=== PATIENT | male | born 1955 | race Caucasian/White ===

== ENCOUNTER 2018-06-05 14:23 | Inpatient (IN) | payer SELFPAY ==
[~2018-06-05] VITALS: Ht 165.1 cm; Wt 68.5 kg
[~2018-06-05 14:23] MED LIST: AMLO10TA80 PO; ASPI-1158 PO; CHLO25TA27 PO; CLOP75TA33 PO; LOSA25TA12 PO; MECL-109 PO; POTA10TA15 PO; PRAV20TA57 PO
[2018-06-05] MEDS ORDERED: CARV6.2548 MT (16:00)
[2018-06-05] MEDS ORDERED: VALS160T28 MT (16:00)
[2018-06-05] MEDS ORDERED: LACO200T2 MT (16:00)
[2018-06-05] MEDS ORDERED: LACO50TA2 MT (16:00)
[2018-06-05 16:08] LABS: BASOPHILS % 0.6 % (0.0-2.0); EOSINOPHILS % 3.4 % (0.0-5.0); HEMATOCRIT. 44.6 % (42.0-52.0); HEMOGLOBIN. 15.5 g/dL (14.0-18.0); LYMPHOCYTES % 26.9 % (20.0-50.0); MEAN CORPUSCULAR HEMOGLOBIN 32.6 pg (28.0-32.0); MEAN CORPUSCULAR VOLUME 94.1 fL (80.0-94.0); MEAN PLATELET VOLUME 8.1 fl (7.4-10.4); MONOCYTES % 4.2 % (2.0-8.0); NEUTROPHILS % 64.9 % (40.0-76.0); PLATELET 240 x1000/uL (130-400); RED BLOOD CELL COUNT 4.74 mill/uL (4.7-6.1); RED CELL DISTRIBUTION WIDTH 12.9 % (11.6-14.6)
[2018-06-05 16:10] LABS: CHLORIDE 110 mEq/L (98-107)
[2018-06-05 16:14] LABS: ETHANOL BLOOD < 10 mg/dL
[2018-06-05 16:17] LABS: LDL CHOLESTEROL 119 mg/dL (5-100)
[2018-06-05 16:18] LABS: INR 1.1
[2018-06-05] MEDS ORDERED: LABETALOL 5MG/ML SYR 20 MG/4 ML SYRINGE IV NR (17:30)
[2018-06-05] MEDS ORDERED: IOHEXOL-350 100 ML BOTTLE ONE (17:33)
[2018-06-05 17:42] LABS: CLARITY URINE CLEAR (CLEAR); COLOR URINE YELLOW (YELLOW); KETONES URINE NEGATIVE (NEGATIVE); LEUKOCYTE ESTERASE URINE NEGATIVE (NEGATIVE); NITRITE URINE NEGATIVE (NEGATIVE); OCCULT BLOOD URINE NEGATIVE (NEGATIVE); PROTEIN URINE NEGATIVE (NEGATIVE); SPECIFIC GRAVITY URINE 1.006 (1.005-1.030); UROBILINOGEN URINE 0.2 E.U./dL (0.2-1.0)
[2018-06-05 17:53] LABS: *AMPHETAMINES SCREEN URINE NEGATIVE (NEGATIVE); *BARBITURATES SCREEN URINE NEGATIVE (NEGATIVE)
[2018-06-05 17:54] LABS: *BENZODIAZEPINES SCREEN URINE NEGATIVE (NEGATIVE); *COCAINE SCREEN URINE NEGATIVE (NEGATIVE); CANNABINOID URINE SCREEN NEGATIVE (NEGATIVE); METHADONE URINE SCREEN NEGATIVE (NEGATIVE); OPIATES URINE SCREEN NEGATIVE (NEGATIVE); PHENCYCLIDINE URINE SCREEN NEGATIVE (NEGATIVE)
[2018-06-05 18:47] VITALS: BP 137/72
[2018-06-05 18:50] VITALS: BP 137/72
[2018-06-05] MEDS ORDERED: MEDICATION NOT ON FORMULARY EA (Clopidogrel Bisulfate (Clopidogrel) 1 TAB) PO SCH (20:15)
[2018-06-05] MEDS ORDERED: LACOSAMIDE MT SCH ×2 (20:15)
[2018-06-05] MEDS ORDERED: ONDANSETRON HCL 4MG/2ML INJ IV PRN (20:15)
[2018-06-05] MEDS ORDERED: HYDROCODONE/ACETAMINOPHEN 5/325MG TABLET PO PRN (20:15)
[2018-06-05] MEDS ORDERED: ACETAMINOPHEN 325MG TABLET PO PRN (20:15)
[2018-06-05 20:30] VITALS: BP 141/76
[2018-06-05] MEDS ORDERED: PRAVASTATIN SODIUM PO SCH (21:00)
[2018-06-05] MEDS: ATORVASTATIN CALCIUM 10MG TABLET PO SCH (21:00)
[2018-06-06 00:01] VITALS: BP 115/49
[2018-06-06 04:00] VITALS: BP 131/69
[2018-06-06 08:00] VITALS: BP 114/71
[2018-06-06] MEDS: ENOXAPARIN 40MG/0.4ML SYR SUBCUT SCH (08:50)
[2018-06-06] MEDS: CLOPIDOGREL 75MG TABLET PO SCH (08:50)
[2018-06-06] MEDS: ASPIRIN 81MG TABLET PO SCH (08:51)
[2018-06-06] MEDS: MECLIZINE 25MG TABLET PO SCH ×2 (08:51→17:47)
[2018-06-06] MEDS: POTASSIUM CHLORIDE 10MEQ TABLET SR PO SCH (08:51)
[2018-06-06] MEDS: CARVEDILOL 6.25 MG TABLET PO SCH ×2 (08:52→17:49)
[2018-06-06] MEDS: AMLODIPINE 10MG TABLET PO SCH (08:53)
[2018-06-06] MEDS: LOSARTAN POTASSIUM 25 MG TABLET PO SCH (08:53)
[2018-06-06] MEDS ORDERED: MECLIZINE HCL PO SCH (09:00)
[2018-06-06] MEDS ORDERED: MEDICATION NOT ON FORMULARY EA (Potassium Chloride 1 TAB) PO SCH (09:00)
[2018-06-06] MEDS ORDERED: MEDICATION NOT ON FORMULARY EA (Losartan Potassium 25 MG) PO SCH (09:00)
[2018-06-06] MEDS ORDERED: MEDICATION NOT ON FORMULARY EA (Aspirin (Aspirin Ec) 81 MG) PO SCH (09:00)
[2018-06-06] MEDS ORDERED: MEDICATION NOT ON FORMULARY EA (Meclizine Hcl 25 MG) PO SCH (09:00)
[2018-06-06 12:00] VITALS: BP 115/50
[2018-06-06 13:15] LABS: T4 FREE 0.9 ng/dL (0.76-1.46)
[2018-06-06 13:25] LABS: FOLIC ACID (FOLATE) SERUM 17.1 ng/mL (>5.38)
[2018-06-06 16:25] VITALS: BP 125/70
[2018-06-06] MEDS: VIMPAT 50 MG PO SCH (17:49)
[2018-06-06] MEDS: VIMPAT 200MG TABLET PO SCH (17:49)
[2018-06-06 20:00] VITALS: BP 113/55
[2018-06-06] MEDS: ATORVASTATIN CALCIUM 10MG TABLET PO SCH (20:52)
[2018-06-07 00:05] VITALS: BP 124/56
[2018-06-07 04:00] VITALS: BP 120/59
[2018-06-07 08:00] VITALS: BP 118/66
[2018-06-07] MEDS: VIMPAT 200MG TABLET PO SCH (08:45)
[2018-06-07] MEDS: VIMPAT 50 MG PO SCH (08:45)
[2018-06-07] MEDS: POTASSIUM CHLORIDE 10MEQ TABLET SR PO SCH (08:49)
[2018-06-07] MEDS: CLOPIDOGREL 75MG TABLET PO SCH (08:49)
[2018-06-07] MEDS: ASPIRIN 81MG TABLET PO SCH (08:49)
[2018-06-07] MEDS: AMLODIPINE 10MG TABLET PO SCH (08:50)
[2018-06-07] MEDS: LOSARTAN POTASSIUM 25 MG TABLET PO SCH (08:53)
[2018-06-07] MEDS: CARVEDILOL 6.25 MG TABLET PO SCH (08:53)
[2018-06-07] MEDS: ENOXAPARIN 40MG/0.4ML SYR SUBCUT SCH (08:54)
[2018-06-07] MEDS: MECLIZINE 25MG TABLET PO SCH (09:05)
[2018-06-07 13:59] VITALS: BP 118/66
[2018-06-07 14:17] VITALS: BP 125/68
== END 2018-06-07 15:47 | disposition home or self-care (01) | DRG 47 ==
LOC: ER 15:40 → 7WST 16:26 → ENRESERV 17:05
PROVIDERS: ADMIT Internal Medicine; ATTEND Internal Medicine
DX: G45.9 Transient cerebral ischemic attack, unspecified (principal); E78.00 Pure hypercholesterolemia, unspecified; E78.5 Hyperlipidemia, unspecified; G40.909 Epilepsy, unspecified, not intractable, without status epilepticus; I10 Essential (primary) hypertension; I25.10 Atherosclerotic heart disease of native coronary artery without angina pectoris; Z95.5 Presence of coronary angioplasty implant and graft; Z85.841 Personal history of malignant neoplasm of brain; Z79.899 Other long term (current) drug therapy; Z79.82 Long term (current) use of aspirin
CPT/HCPCS: 36415; 70496; 70498; 70551; 71045; 80061; 80305; 82607; 82746; 82962; 83036; 83721; 84439; 84443; 84481; 84484; 93005; 93306; 99291; J1650; J8597; Q9967

== ENCOUNTER 2019-03-31 14:13 | Inpatient (IN) | payer MEDICAID, OTHER ==
[~2019-03-31] VITALS: Ht 172.7 cm; Wt 71.7 kg
[~2019-03-31 14:13] MED LIST changes: +CARV6.2548 MT; -CHLO25TA27 PO; +LACO200T2 MT; +LACO50TA2 MT; -LOSA25TA12 PO; +LOSA25TA26 PO; +VALS160T28 MT
[2019-03-31] MEDS ORDERED: ACETAMINOPHEN 325MG TABLET PO STA (14:57)
[2019-03-31] MEDS ORDERED: SODIUM CHLORIDE 0.9% 1000ML BAG (SEPSIS BOLUS) IV ONE (15:00)
[2019-03-31 15:32] LABS: BASOPHILS % 0.2 % (0.0-2.0); EOSINOPHILS % 0.1 % (0.0-5.0); HEMATOCRIT. 25.2 % (42.0-52.0); HEMOGLOBIN. 8.7 g/dL (14.0-18.0); LYMPHOCYTES % 10.8 % (20.0-50.0); MEAN CORPUSCULAR HEMOGLOBIN 32.5 pg (28.0-32.0); MEAN CORPUSCULAR VOLUME 94.1 fL (80.0-94.0); MEAN PLATELET VOLUME 8.6 fl (7.4-10.4); MONOCYTES % 6.2 % (2.0-8.0); NEUTROPHILS % 82.7 % (40.0-76.0); PLATELET 206 x1000/uL (130-400); RED BLOOD CELL COUNT 2.68 mill/uL (4.7-6.1); RED CELL DISTRIBUTION WIDTH 12.9 % (11.6-14.6)
[2019-03-31 15:36] LABS: CHLORIDE 106 mEq/L (98-107)
[2019-03-31 15:37] LABS: INR 1.1; PROTHROMBIN TIME 11.8 sec (9.6-11.0)
[2019-03-31 16:04] LABS: CLARITY URINE CLEAR (CLEAR); COLOR URINE YELLOW (YELLOW); KETONES URINE NEGATIVE (NEGATIVE); LEUKOCYTE ESTERASE URINE NEGATIVE (NEGATIVE); NITRITE URINE NEGATIVE (NEGATIVE); OCCULT BLOOD URINE NEGATIVE (NEGATIVE); PROTEIN URINE NEGATIVE (NEGATIVE); SPECIFIC GRAVITY URINE 1.019 (1.005-1.030)
[2019-03-31] MEDS ORDERED: IPRATROPIUM/ALBUTEROL 0.5-3(2.5)MG/3ML NEB NEB PRN (17:45)
[2019-03-31] MEDS ORDERED: ONDANSETRON HCL 4MG/2ML INJ IV PRN (17:45)
[2019-03-31] MEDS ORDERED: DIPHENHYDRAMINE 50MG/ML VIAL IV PRN (17:45)
[2019-03-31] MEDS ORDERED: ACETAMINOPHEN 325MG TABLET PO PRN (17:45)
[2019-03-31] MEDS ORDERED: ACETAMINOPHEN 650MG SUPP PR PRN (17:45)
[2019-03-31] MEDS ORDERED: GUAIFENESIN 200MG/10ML SUGAR FREE UDC PO PRN (17:45)
[2019-03-31] MEDS ORDERED: CLONIDINE 0.1MG TABLET PO PRN (17:45)
[2019-03-31] MEDS ORDERED: MAGNESIUM/ALUMINUM HYDROXIDE/SIMETHICONE 30ML UDC PO PRN (17:45)
[2019-03-31] MEDS ORDERED: HYDROCODONE/ACETAMINOPHEN 5/325MG TABLET PO PRN (17:45)
[2019-03-31] MEDS ORDERED: NA PHOS,M-B/NA PHOS,DI-BA ENEMA 118ML PR PRN (17:45)
[2019-03-31] MEDS ORDERED: LORAZEPAM 0.5MG TABLET PO PRN (17:45)
[2019-03-31] MEDS ORDERED: DOCUSATE SODIUM 100MG CAPSULE PO PRN (17:45)
[2019-03-31] MEDS: DEXT 5%/0.45% NACL 1000ML 1,000 ML IV SCH (18:38)
[2019-03-31 19:07] LABS: HEMATOCRIT 20.3 % (42.0-52.0)
[2019-03-31 20:53] LABS: BASOPHILS % 0.3 % (0.0-2.0); EOSINOPHILS % 0.2 % (0.0-5.0); LYMPHOCYTES % 16.8 % (20.0-50.0); MEAN CORPUSCULAR HEMOGLOBIN 33.4 pg (28.0-32.0); MEAN CORPUSCULAR VOLUME 95.2 fL (80.0-94.0); MEAN PLATELET VOLUME 8.9 fl (7.4-10.4); MONOCYTES % 6.8 % (2.0-8.0); NEUTROPHILS % 75.9 % (40.0-76.0); PLATELET 162 x1000/uL (130-400); RED BLOOD CELL COUNT 1.75 mill/uL (4.7-6.1); RED CELL DISTRIBUTION WIDTH 12.5 % (11.6-14.6)
[2019-03-31 20:55] LABS: HEMATOCRIT. 16.6 % (42.0-52.0); HEMOGLOBIN. 5.8 g/dL (14.0-18.0)
[2019-03-31] MEDS ORDERED: POTASSIUM CHLORIDE INJ 40 MEQ in DEXT 5% WATER 250 ML IV NR (22:59)
[2019-03-31] MEDS ORDERED: PANTOPRAZOLE SODIUM 40 MG/VIAL IV NR (23:03)
[2019-03-31] MEDS ORDERED: PIPERACILLIN/TAZOBACTAM 3.375 G in DEXT 5% WATER 100 ML IV NR (23:04)
[2019-04-01] VITALS (33 sets, daily range): BP systolic 97–146; BP diastolic 44–92
[2019-04-01] MEDS: PANTOPRAZOLE SODIUM 40 MG/VIAL IV SCH ×3 (00:41→17:50)
[2019-04-01] MEDS: PIPERACILLIN/TAZOBACTAM 3.375 G in DEXT 5% WATER 100 ML IV SCH ×4 (01:00→21:55)
[2019-04-01] MEDS ORDERED: MAGNESIUM CITRATE 300ML SOLUTION PO SCH (03:00)
[2019-04-01] MEDS ORDERED: VANCOMYCIN 1500MG in DEXTROSE 5% WATER 250ML IV SCH (03:00)
[2019-04-01] MEDS: SORBITOL 70% SOLN 30ML PO SCH ×2 (04:26→08:00)
[2019-04-01 05:34] LABS: CHLORIDE 119 mEq/L (98-107)
[2019-04-01 05:41] LABS: LDL CHOLESTEROL 52 mg/dL (5-100)
[2019-04-01 05:42] LABS: BASOPHILS % 0.3 % (0.0-2.0); EOSINOPHILS % 0.7 % (0.0-5.0); HDL CHOLESTEROL 22 mg/dL (40-59); HEMATOCRIT. 24.1 % (42.0-52.0); HEMOGLOBIN. 8.4 g/dL (14.0-18.0); MEAN CORPUSCULAR HEMOGLOBIN 31.6 pg (28.0-32.0); MEAN CORPUSCULAR VOLUME 90.9 fL (80.0-94.0); MEAN PLATELET VOLUME 8.7 fl (7.4-10.4); MONOCYTES % 8.4 % (2.0-8.0); NEUTROPHILS % 65.6 % (40.0-76.0); PLATELET 143 x1000/uL (130-400); RED BLOOD CELL COUNT 2.65 mill/uL (4.7-6.1); RED CELL DISTRIBUTION WIDTH 16.5 % (11.6-14.6)
[2019-04-01 05:44] LABS: TOTAL IRON BINDING CAPACITY 178 ug/dL (250-450)
[2019-04-01 05:47] LABS: T4 FREE 0.91 ng/dL (0.76-1.46)
[2019-04-01] MEDS: DEXT 5%/0.45% NACL 1000ML 1,000 ML IV SCH (09:36)
[2019-04-01 10:24] LABS: *AMPHETAMINES SCREEN URINE NEGATIVE (NEGATIVE)
[2019-04-01 10:25] LABS: *BARBITURATES SCREEN URINE NEGATIVE (NEGATIVE); *BENZODIAZEPINES SCREEN URINE NEGATIVE (NEGATIVE); *COCAINE SCREEN URINE NEGATIVE (NEGATIVE)
[2019-04-01 10:26] LABS: METHADONE URINE SCREEN NEGATIVE (NEGATIVE); OPIATES URINE SCREEN NEGATIVE (NEGATIVE)
[2019-04-01 10:27] LABS: CANNABINOID URINE SCREEN NEGATIVE (NEGATIVE); PHENCYCLIDINE URINE SCREEN NEGATIVE (NEGATIVE)
[2019-04-01 11:38] LABS: HEMATOCRIT 23.3 % (42.0-52.0); HEMOGLOBIN 8.2 g/dL (14.0-18.0)
[2019-04-01] MEDS: DEXTROSE 5% WATER 1,000 ML IV SCH ×2 (12:20→21:54)
[2019-04-01 15:45] LABS: BG BASE EXCESS -2.5 mmol/L (-2.0-2.0); BG CARBOXYHEMOGLOBIN 0.3 % (0.5-1.5); BG DEOXYHEMOGLOBIN 4.6 % (0.0-5.0); BG FRACTION INSPIRED OXYGEN 21; BG HCO3 ACT 21.1 mmol/L (22.0-26.0); BG METHEMOGLOBIN 0.3 % (0.0-1.5); BG OXYGEN SATURATION 95.4 % (92.0-98.5); BG OXYHEMOGLOBIN 94.8 % (94.0-97.0); BG PO2 78.6 mmHg (75.0-100.0); BG SAMPLE SITE RIGHT BRACHIAL; BG TOTAL HEMOGLOBIN 7.7 g/dL (12.0-18.0); BG VENT MODE ROOM AIR
[2019-04-01] MEDS ORDERED: MIDAZOLAM HCL 5 MG/5 ML VIAL ONE ×2 (15:57→15:58)
[2019-04-01] MEDS ORDERED: FENTANYL CITRATE/PF 50MCG/ML 2ML VIAL ONE (15:58)
[2019-04-01] MEDS ORDERED: FENTANYL CITRATE/PF 50MCG/ML 2ML VIAL IV PRN (16:09)
[2019-04-01] MEDS ORDERED: MIDAZOLAM HCL 5 MG/5 ML VIAL IV PRN (16:10)
[2019-04-01] MEDS: VANCOMYCIN 1250MG in DEXTROSE 5% WATER 250ML IV SCH (16:46)
[2019-04-01] MEDS: AZITHROMYCIN 500 MG in DEXT 5% WATER 250 ML IV SCH (17:48)
[2019-04-01] MEDS ORDERED: NON FORMULARY PATIENT HOME MED XX SCH (21:00)
[2019-04-01 21:12] LABS: HEMATOCRIT 22.3 % (42.0-52.0); HEMOGLOBIN 7.6 g/dL (14.0-18.0)
[2019-04-01] MEDS: VIMPAT 200MG TABLET PO SCH (22:18)
[2019-04-01] MEDS: VIMPAT 50 MG PO SCH (22:18)
[2019-04-02] VITALS (40 sets, daily range): BP systolic 102–148; BP diastolic 45–89
[2019-04-02] MEDS: VANCOMYCIN 1250MG in DEXTROSE 5% WATER 250ML IV SCH ×2 (03:19→20:57)
[2019-04-02] MEDS: IPRATROPIUM/ALBUTEROL 0.5-3(2.5)MG/3ML NEB NEB SCH ×4 (04:42→20:21)
[2019-04-02] MEDS: PIPERACILLIN/TAZOBACTAM 3.375 G in DEXT 5% WATER 100 ML IV SCH ×4 (05:10→22:43)
[2019-04-02 05:27] LABS: CHLORIDE 114 mEq/L (98-107)
[2019-04-02 05:35] LABS: BASOPHILS % 0.5 % (0.0-2.0); EOSINOPHILS % 3.4 % (0.0-5.0); HEMOGLOBIN. 7.1 g/dL (14.0-18.0); LYMPHOCYTES % 28.2 % (20.0-50.0); MEAN CORPUSCULAR HEMOGLOBIN 31.4 pg (28.0-32.0); MEAN CORPUSCULAR VOLUME 90.3 fL (80.0-94.0); MEAN PLATELET VOLUME 9.3 fl (7.4-10.4); MONOCYTES % 7.5 % (2.0-8.0); NEUTROPHILS % 60.4 % (40.0-76.0); PLATELET 153 x1000/uL (130-400); RED BLOOD CELL COUNT 2.27 mill/uL (4.7-6.1); RED CELL DISTRIBUTION WIDTH 16.1 % (11.6-14.6)
[2019-04-02 06:09] LABS: HEMATOCRIT. 20.5 % (42.0-52.0)
[2019-04-02] MEDS ORDERED: POTASSIUM CHLORIDE 20MEQ TABLET SR PO NR (07:00)
[2019-04-02] MEDS: ACETYLCYSTEINE 100MG/ML 10% VIAL 4ML INH SCH ×2 (08:15→16:40)
[2019-04-02] MEDS: PANTOPRAZOLE SODIUM 40 MG/VIAL IV SCH ×2 (08:48→17:25)
[2019-04-02] MEDS: VIMPAT 50 MG PO SCH ×2 (08:48→17:31)
[2019-04-02] MEDS: VIMPAT 200MG TABLET PO SCH ×2 (08:49→17:32)
[2019-04-02 10:43] LABS: HEMATOCRIT 22.9 % (42.0-52.0)
[2019-04-02] MEDS: DEXTROSE 5% WATER 1,000 ML IV SCH (14:20)
[2019-04-02] MEDS: AZITHROMYCIN 500 MG in DEXT 5% WATER 250 ML IV SCH (17:25)
[2019-04-03] VITALS (27 sets, daily range): BP systolic 108–143; BP diastolic 46–75
[2019-04-03] MEDS: DEXTROSE 5% WATER 1,000 ML IV SCH ×2 (00:27→12:25)
[2019-04-03] MEDS: IPRATROPIUM/ALBUTEROL 0.5-3(2.5)MG/3ML NEB NEB SCH ×4 (01:27→20:35)
[2019-04-03] MEDS: ACETYLCYSTEINE 100MG/ML 10% VIAL 4ML INH SCH ×3 (01:39→17:03)
[2019-04-03] MEDS: PIPERACILLIN/TAZOBACTAM 3.375 G in DEXT 5% WATER 100 ML IV SCH ×3 (04:40→16:31)
[2019-04-03 05:57] LABS: BASOPHILS % 0.8 % (0.0-2.0); EOSINOPHILS % 3.8 % (0.0-5.0); HEMATOCRIT. 21.2 % (42.0-52.0); HEMOGLOBIN. 7.4 g/dL (14.0-18.0); LYMPHOCYTES % 27.5 % (20.0-50.0); MEAN CORPUSCULAR HEMOGLOBIN 31.4 pg (28.0-32.0); MEAN CORPUSCULAR VOLUME 89.6 fL (80.0-94.0); MEAN PLATELET VOLUME 8.8 fl (7.4-10.4); MONOCYTES % 7.7 % (2.0-8.0); NEUTROPHILS % 60.2 % (40.0-76.0); PLATELET 187 x1000/uL (130-400); RED BLOOD CELL COUNT 2.37 mill/uL (4.7-6.1); RED CELL DISTRIBUTION WIDTH 15.8 % (11.6-14.6)
[2019-04-03 06:03] LABS: CHLORIDE 111 mEq/L (98-107)
[2019-04-03] MEDS: PANTOPRAZOLE SODIUM 40 MG/VIAL IV SCH ×2 (08:21→20:34)
[2019-04-03] MEDS: VANCOMYCIN 1250MG in DEXTROSE 5% WATER 250ML IV SCH (08:21)
[2019-04-03] MEDS: VIMPAT 50 MG PO SCH ×2 (08:22→16:31)
[2019-04-03] MEDS: VIMPAT 200MG TABLET PO SCH ×2 (08:23→16:31)
[2019-04-03] MEDS ORDERED: POTASSIUM CHLORIDE 20MEQ TABLET SR PO NR (11:00)
[2019-04-03] MEDS: AZITHROMYCIN 500 MG in DEXT 5% WATER 250 ML IV SCH (16:31)
[2019-04-03 18:05] LABS: HEMATOCRIT 25.7 % (42.0-52.0); HEMOGLOBIN 9.1 g/dL (14.0-18.0)
[2019-04-03] MEDS: VANCOMYCIN 1 G PREMIX 200 ML IV SCH (20:35)
[2019-04-03 20:55] LABS: HEMATOCRIT 25.7 % (42.0-52.0); HEMOGLOBIN 8.9 g/dL (14.0-18.0)
[2019-04-04] VITALS (11 sets, daily range): BP systolic 105–138; BP diastolic 50–92
[2019-04-04] MEDS: IPRATROPIUM/ALBUTEROL 0.5-3(2.5)MG/3ML NEB NEB SCH ×4 (02:21→21:24)
[2019-04-04] MEDS: ACETYLCYSTEINE 100MG/ML 10% VIAL 4ML INH SCH ×3 (02:21→14:07)
[2019-04-04] MEDS: VANCOMYCIN 1 G PREMIX 200 ML IV SCH (04:22)
[2019-04-04] MEDS: PIPERACILLIN/TAZOBACTAM 3.375 G in DEXT 5% WATER 100 ML IV SCH ×6 (04:24→22:10)
[2019-04-04 06:45] LABS: CHLORIDE 110 mEq/L (98-107)
[2019-04-04 06:57] LABS: BASOPHILS % 0.8 % (0.0-2.0); EOSINOPHILS % 6.5 % (0.0-5.0); HEMATOCRIT. 25.6 % (42.0-52.0); HEMOGLOBIN. 8.9 g/dL (14.0-18.0); LYMPHOCYTES % 27.7 % (20.0-50.0); MEAN CORPUSCULAR HEMOGLOBIN 31.4 pg (28.0-32.0); MEAN CORPUSCULAR VOLUME 90.9 fL (80.0-94.0); MEAN PLATELET VOLUME 8.7 fl (7.4-10.4); MONOCYTES % 8.1 % (2.0-8.0); NEUTROPHILS % 56.9 % (40.0-76.0); PLATELET 238 x1000/uL (130-400); RED BLOOD CELL COUNT 2.82 mill/uL (4.7-6.1); RED CELL DISTRIBUTION WIDTH 15.3 % (11.6-14.6)
[2019-04-04] MEDS: DEXTROSE 5% WATER 1,000 ML IV SCH (07:12)
[2019-04-04] MEDS: VIMPAT 50 MG PO SCH ×2 (09:55→17:23)
[2019-04-04] MEDS: PANTOPRAZOLE SODIUM 40 MG/VIAL IV SCH ×2 (09:55→17:27)
[2019-04-04] MEDS: VIMPAT 200MG TABLET PO SCH ×2 (09:55→17:23)
[2019-04-04] MEDS: AZITHROMYCIN 500 MG in DEXT 5% WATER 250 ML IV SCH (17:22)
[2019-04-04] MEDS: VANCOMYCIN 750 MG PREMIX 150 ML IV SCH (18:43)
[2019-04-04 20:35] LABS: HEMATOCRIT 24.6 % (42.0-52.0); HEMOGLOBIN 8.6 g/dL (14.0-18.0)
[2019-04-05] VITALS (10 sets, daily range): BP systolic 105–145; BP diastolic 51–79
[2019-04-05] MEDS: ACETYLCYSTEINE 100MG/ML 10% VIAL 4ML INH SCH ×2 (00:55→09:01)
[2019-04-05] MEDS: IPRATROPIUM/ALBUTEROL 0.5-3(2.5)MG/3ML NEB NEB SCH ×2 (00:56→09:01)
[2019-04-05] MEDS: VANCOMYCIN 750 MG PREMIX 150 ML IV SCH ×2 (01:19→10:10)
[2019-04-05 02:03] LABS: HEMATOCRIT 26.1 % (42.0-52.0); HEMOGLOBIN 8.9 g/dL (14.0-18.0)
[2019-04-05] MEDS: DEXTROSE 5% WATER 1,000 ML IV SCH (03:08)
[2019-04-05] MEDS: PIPERACILLIN/TAZOBACTAM 3.375 G in DEXT 5% WATER 100 ML IV SCH ×2 (04:19→11:55)
[2019-04-05 06:48] LABS: BASOPHILS % 0.5 % (0.0-2.0); EOSINOPHILS % 5.4 % (0.0-5.0); HEMATOCRIT. 25.4 % (42.0-52.0); LYMPHOCYTES % 24.5 % (20.0-50.0); MEAN CORPUSCULAR HEMOGLOBIN 32.2 pg (28.0-32.0); MEAN CORPUSCULAR VOLUME 91.5 fL (80.0-94.0); MEAN PLATELET VOLUME 8.3 fl (7.4-10.4); MONOCYTES % 8.2 % (2.0-8.0); NEUTROPHILS % 61.4 % (40.0-76.0); PLATELET 313 x1000/uL (130-400); RED BLOOD CELL COUNT 2.78 mill/uL (4.7-6.1); RED CELL DISTRIBUTION WIDTH 15.2 % (11.6-14.6)
[2019-04-05 06:54] LABS: CHLORIDE 111 mEq/L (98-107)
[2019-04-05] MEDS: VIMPAT 200MG TABLET PO SCH (08:37)
[2019-04-05] MEDS: PANTOPRAZOLE SODIUM 40 MG/VIAL IV SCH (08:37)
[2019-04-05] MEDS: VIMPAT 50 MG PO SCH (08:38)
[2019-04-05 12:42] LABS: HEMATOCRIT 26.2 % (42.0-52.0); HEMOGLOBIN 9.1 g/dL (14.0-18.0)
[2019-04-05] MEDS ORDERED: AZIT500T5 MT (14:32)
[2019-04-05] MEDS ORDERED: ALBU90AE INH (14:32)
[2019-04-05] MEDS ORDERED: PROT40 PO (14:32)
== END 2019-04-05 16:45 | disposition home or self-care (01) | DRG 871 ==
LOC: ER 14:13 → CVICU 16:21 → EDBEDREQSVC 16:29 → EDBEDREQ 16:29 → SUPCPDRO 16:57 → ENRESERV 20:43 → CANRESERV 20:43 → EDBEDREQTM 20:56 → EDBEDREQSVC 20:56 → ENRESERV 23:47 → 3WST 04-03 23:07
PROVIDERS: ADMIT Internal Medicine; ATTEND Internal Medicine
PROC: 30233N1 Transfusion of Nonautologous Red Blood Cells into Peripheral Vein, Percutaneous Approach (ICD-10-PCS; principal; 2019-03-31)
PROC: 0DJ08ZZ Inspection of Upper Intestinal Tract, Via Natural or Artificial Opening Endoscopic (ICD-10-PCS; 2019-04-01)
DX: A41.9 Sepsis, unspecified organism (principal); K22.6 Gastro-esophageal laceration-hemorrhage syndrome; J69.0 Pneumonitis due to inhalation of food and vomit; K29.81 Duodenitis with bleeding; K29.71 Gastritis, unspecified, with bleeding; E44.1 Mild protein-calorie malnutrition; D62 Acute posthemorrhagic anemia; E86.0 Dehydration; K44.9 Diaphragmatic hernia without obstruction or gangrene; K56.41 Fecal impaction; E78.5 Hyperlipidemia, unspecified; E11.9 Type 2 diabetes mellitus without complications; E78.00 Pure hypercholesterolemia, unspecified; E87.6 Hypokalemia; F17.210 Nicotine dependence, cigarettes, uncomplicated; I11.9 Hypertensive heart disease without heart failure; G90.8 Other disorders of autonomic nervous system; I25.10 Atherosclerotic heart disease of native coronary artery without angina pectoris; N40.0 Benign prostatic hyperplasia without lower urinary tract symptoms; Z79.82 Long term (current) use of aspirin; Z86.011 Personal history of benign neoplasm of the brain; Z87.19 Personal history of other diseases of the digestive system; Z95.5 Presence of coronary angioplasty implant and graft; Z68.24 Body mass index [BMI] 24.0-24.9, adult; Z79.899 Other long term (current) drug therapy
CPT/HCPCS: 36415; 36600; 71045; 71250; 74018; 74176; 78278; 80048; 80061; 80202; 80305; 81003; 82270; 82375; 82805; 82962; 83540; 83550; 83605; 84145; 84153; 84439; 84443; 84484; 85014; 85018; 85044; 86850; 86900; 86920; 87070; 87449; 87804; 93005; 93306; 93970; 96361; 96365; 96375; 97162; 99291; A6261; A9560; C9113; J0456; J1200; J2250; J2543; J3010; J3370; J3480; J7030; J7040; J7060; J7070; J7608; J7620; P9016; G0103

== ENCOUNTER 2019-09-17 12:34 | Inpatient (IN) | payer OTHER ==
[~2019-09-17] VITALS: Ht 165.1 cm; Wt 66.2 kg
[~2019-09-17 12:34] MED LIST changes: +ALBU90AE INH; -ASPI-1158 PO; +AZIT500T8 MT; -CLOP75TA33 PO; -MECL-109 PO; +MECL-159 PO; -POTA10TA15 PO; +PROT40 PO
[2019-09-17 14:19] LABS: BASOPHILS % 0.7 % (0.0-2.0); EOSINOPHILS % 6.1 % (0.0-5.0); HEMATOCRIT. 42.1 % (42.0-52.0); HEMOGLOBIN. 14.9 g/dL (14.0-18.0); LYMPHOCYTES % 24.9 % (20.0-50.0); MEAN CORPUSCULAR HEMOGLOBIN 32.5 pg (28.0-32.0); MEAN CORPUSCULAR VOLUME 92.1 fL (80.0-94.0); MEAN PLATELET VOLUME 8.6 fl (7.4-10.4); MONOCYTES % 5.6 % (2.0-8.0); NEUTROPHILS % 62.7 % (40.0-76.0); PLATELET 259 x1000/uL (130-400); RED BLOOD CELL COUNT 4.57 mill/uL (4.7-6.1); RED CELL DISTRIBUTION WIDTH 14.2 % (11.6-14.6)
[2019-09-17 14:26] LABS: CHLORIDE 109 mEq/L (98-107)
[2019-09-17] MEDS ORDERED: ZOLPIDEM TARTRATE 5MG TABLET PO PRN (21:30)
[2019-09-17] MEDS ORDERED: ONDANSETRON HCL 4MG/2ML INJ IV PRN (21:30)
[2019-09-17] MEDS ORDERED: CLONIDINE 0.1MG TABLET PO PRN (21:30)
[2019-09-17] MEDS ORDERED: ACETAMINOPHEN 325MG TABLET PO PRN ×2 (21:30)
[2019-09-17 22:33] VITALS: BP 127/69
[2019-09-17 23:00] VITALS: BP 127/69
[2019-09-17] MEDS ORDERED: FAMO20TA8 PO (23:03)
[2019-09-17] MEDS ORDERED: ASPI-1497 PO (23:03)
[2019-09-18] VITALS: BP 136/62
[2019-09-18] MEDS: SODIUM CHLORIDE 0.9% INJ 3ML FLUSH IVF SCH ×4 (00:02→20:37)
[2019-09-18 04:00] VITALS: BP 135/72
[2019-09-18 07:06] LABS: BASOPHILS % 0.6 % (0.0-2.0); EOSINOPHILS % 6.5 % (0.0-5.0); HEMATOCRIT. 41.3 % (42.0-52.0); HEMOGLOBIN. 14.5 g/dL (14.0-18.0); LYMPHOCYTES % 33.6 % (20.0-50.0); MEAN CORPUSCULAR HEMOGLOBIN 32.7 pg (28.0-32.0); MEAN CORPUSCULAR VOLUME 93.3 fL (80.0-94.0); MEAN PLATELET VOLUME 8.4 fl (7.4-10.4); MONOCYTES % 7.4 % (2.0-8.0); NEUTROPHILS % 51.9 % (40.0-76.0); PLATELET 247 x1000/uL (130-400); RED BLOOD CELL COUNT 4.42 mill/uL (4.7-6.1); RED CELL DISTRIBUTION WIDTH 14.5 % (11.6-14.6)
[2019-09-18 07:10] LABS: CHLORIDE 110 mEq/L (98-107)
[2019-09-18 08:00] VITALS: BP 116/69
[2019-09-18] MEDS: PANTOPRAZOLE 40MG DR TABLET PO SCH (09:03)
[2019-09-18] MEDS: ENOXAPARIN 40MG/0.4ML SYR SUBCUT SCH (09:03)
[2019-09-18] MEDS: AMLODIPINE 5MG TABLET PO SCH ×2 (09:04→20:36)
[2019-09-18 12:00] VITALS: BP 137/77
[2019-09-18] MEDS: LACOSAMIDE 50 MG PO SCH ×2 (13:39→20:36)
[2019-09-18] MEDS: LACOSAMIDE 200 MG PO SCH ×2 (13:40→20:36)
[2019-09-18 16:00] VITALS: BP 143/62
[2019-09-19] MEDS: SODIUM CHLORIDE 0.9% INJ 3ML FLUSH IVF SCH ×3 (06:46→20:52)
[2019-09-19] MEDS: PANTOPRAZOLE 40MG DR TABLET PO SCH (06:46)
[2019-09-19 08:00] VITALS: BP 134/84
[2019-09-19] MEDS: AMLODIPINE 5MG TABLET PO SCH ×2 (08:06→20:52)
[2019-09-19] MEDS: LACOSAMIDE 50 MG PO SCH ×2 (08:06→21:29)
[2019-09-19] MEDS: LACOSAMIDE 200 MG PO SCH ×2 (08:06→21:29)
[2019-09-19] MEDS: ENOXAPARIN 40MG/0.4ML SYR SUBCUT SCH (08:08)
[2019-09-19] MEDS ORDERED: REGADENOSON 0.4 MG/5 ML IV ONE (10:45)
[2019-09-19 12:00] VITALS: BP 123/64
[2019-09-19 16:00] VITALS: BP 120/60
[2019-09-19 20:00] VITALS: BP 139/73
[2019-09-20] VITALS: BP 125/66
[2019-09-20 04:00] VITALS: BP 105/78
[2019-09-20] MEDS ORDERED: FAMOTIDINE 20MG TABLET PO SCH (06:45)
[2019-09-20] MEDS: SODIUM CHLORIDE 0.9% INJ 3ML FLUSH IVF SCH ×2 (06:46→14:00)
[2019-09-20 08:00] VITALS: BP 120/69
[2019-09-20] MEDS: ENOXAPARIN 40MG/0.4ML SYR SUBCUT SCH (09:00)
[2019-09-20] MEDS ORDERED: REGADENOSON 0.4 MG/5 ML IV ONE (09:05)
[2019-09-20] MEDS: AMLODIPINE 5MG TABLET PO SCH (10:14)
[2019-09-20] MEDS: LACOSAMIDE 200 MG PO SCH (10:14)
[2019-09-20] MEDS: LACOSAMIDE 50 MG PO SCH (10:15)
[2019-09-20 11:43] VITALS: BP 132/76
[2019-09-20] MEDS ORDERED: ASPIRIN 81MG EC TABLET PO SCH (11:45)
== END 2019-09-20 14:20 | disposition home or self-care (01) | DRG 206 ==
LOC: ER 12:34 → ENRESERV 20:24 → 5WST 21:24
PROVIDERS: ADMIT Internal Medicine; ATTEND Internal Medicine
DX: M94.0 Chondrocostal junction syndrome [Tietze] (principal); I25.10 Atherosclerotic heart disease of native coronary artery without angina pectoris; I10 Essential (primary) hypertension; E11.9 Type 2 diabetes mellitus without complications; N40.0 Benign prostatic hyperplasia without lower urinary tract symptoms; E78.00 Pure hypercholesterolemia, unspecified; E78.5 Hyperlipidemia, unspecified; E87.8 Other disorders of electrolyte and fluid balance, not elsewhere classified; F17.200 Nicotine dependence, unspecified, uncomplicated; I25.2 Old myocardial infarction; Z87.19 Personal history of other diseases of the digestive system; Z86.011 Personal history of benign neoplasm of the brain; Z95.5 Presence of coronary angioplasty implant and graft; Z79.82 Long term (current) use of aspirin; Z79.899 Other long term (current) drug therapy
CPT/HCPCS: 36415; 71045; 78452; 80048; 80053; 83880; 84484; 85025; 93005; 93017; 93306; 93970; 99285; A9500; J1650; J2785